=== PATIENT | female | born 1965 | race Caucasian/White ===

== ENCOUNTER → 2018-03-18 | Day surgery (SDC) | payer OTHER ==
[~2018-03-18] VITALS: Ht 160 cm; Wt 60.8 kg
[~2018-03-18] MED LIST: AMLODIPINE BES2.5 M1 PO; PREMPRO 0.45-11 EACH PO
--- NOTE | 2018-03-18 15:31 | Operative Report ---
Operative/Inv Procedure Report Surgery Date: 03/18/18 Name of Procedure: Right ureteroscopy with laser lithotripsy and stent placement Pre-Operative Diagnosis: Right renal stones 3 Post-Operative Diagnosis: No renal or ureteral stones. On Mayito's plaque present. Estimated Blood Loss: scant Surgeon/Knot Tying Operator: Yenny Ramirez MD Anesthesia: laryngeal mask airway Drains: 6 x 22 cm ureteral stent Complications: None Condition: Stable Operative Indication: Right renal stones Operative/Procedure Note Note: 52yo female with recently diagnosed kidney stones last year. She had ESWL in with Dr. Karimi but never passed any stone fragments. Repeat US this month has shown similar sized stones persistently present. She has right flank pain intermittently that can be 8-91/0 at its worst with nausea. She has no irritative urinary sx and no voiding complaints. She has no UUI and has rare SANDRA. She has no hx of hematuria or chronic UTIs. He was interested in having her right renal stones addressed however not with as wall as she failed last year with the previous urologist and she wished to go ahead with ureteroscopy with laser lithotripsy. The risks benefits and alternatives were given. All questions were answered. She signed a consent in the holding area. Patient was brought to the operating room placed on the operating table in supine position. Timeout was performed. IV antibiotics were infused. She was placed in the dorsolithotomy position and prepped and draped in the standard sterile fashion. Cystoscopy was performed and the bladder was globally inspected. There were no abnormalities appreciated. The right ureteral orifice cannulated with a solo part guidewire. This was followed by the dual-lumen catheter and a superstiff Amplatz wire. 25 cm ureteral access sheath was then placed over the Super Stiff first with the inner sheath followed by the inner and outer sheath together. The inner sheath and the wire were removed and the digital flexible ureteroscope was then placed into the ureter up to the renal pelvis. The calyces were examined in sequential order from upper, middle to lower. No renal stones were appreciated. She did have a few Mayito's plaques. These were reevaluated with a second look. And again no stones were appreciated. The flexible ureteroscope was then withdrawn with the ureteral access sheath and the ureter was examined on the way out. Again no stones were seen in the ureter. The solo part guidewire was then used to place a 6 x 22 cm ureteral stent with the cystoscope. It was seen to be in good position on fluoroscopy. She tolerated the procedure well. She was transferred to the recovery room stable condition at the Betadine was cleaned from her skin. Findings: No renal or ureteral stones in the right urinary system Discharge Disposition: PACU
--- NOTE | 2018-03-20 00:31 | RADIOLOGY REPORT ---
EXAMINATION: CR ABDOMEN/INTRAOPERATIVE FLUOROSCOPY CLINICAL INDICATION: Right ureteroscopy and stent placement. COMPARISON: Renal ultrasound dated 02/21/2018. TECHNIQUE/FINDINGS: Fluoroscopic equipment was dedicated to the operating room for the performance of an intraoperative procedure. Several (11) spot films were acquired and are archived in PACS. Please refer to operative notes for procedural detail. FLUOROSCOPY TIME: 7.6 seconds. IMPRESSION: Administrative dictation for intraoperative fluoroscopy and image archiving in PACS. Please refer to operative notes for details.
== END ==
LOC: STS 03:03
DX: N28.9 Disorder of kidney and ureter, unspecified (principal); R10.9 Unspecified abdominal pain; I10 Essential (primary) hypertension; K21.9 Gastro-esophageal reflux disease without esophagitis
CPT/HCPCS: 76000; C2617; J0131; J0690; J1885; J2250; J2405